=== PATIENT | male | born 1950 | race African-American/Black ===

== ENCOUNTER 2019-12-28 10:08 | Inpatient (IN) ==
[2019-12-28] MEDS ORDERED: Isovue-370 500 ML BOTTLE IVP ONE (10:27)
[2019-12-28] MEDS ORDERED: *HR* FentaNYL (PF) 100 MCG/2 ML VIAL IVP ONE (10:29)
[2019-12-28] MEDS ORDERED: Ondansetron 4 MG/2 ML VIAL IVP ONE (10:29)
[2019-12-28 10:50] LABS: Basophils % 0.3 %; Eosinophils # 0.2 K/mcL (0.0-0.6); Eosinophils % 1.6 %; Hematocrit 40.8 % (37.5-50.1); Hemoglobin 13.6 g/dL (12.9-16.9); Immature Granulocytes % 0.4 % (0-4); Lymphocytes # 0.8 K/mcL (0.6-4.6); Lymphocytes % 6.3 %; Mean Corpuscular HGB Conc 33.3 g/dL (31.6-35.5); Mean Corpuscular Hemoglobin 29.8 pg (28.0-33.3); Mean Corpuscular Volume 89.3 fL (83.0-100.0); Mean Platelet Volume 9.4 fL (9.4-12.4); Monocytes # 1.1 K/mcL (0.0-1.3); Monocytes % 8.6 %; Neutrophils # 10.7 K/mcL (1.6-8.9); Platelet Count 539 K/mcL (140-400); Red Blood Count 4.57 M/mcL (4.19-5.50); Red Cell Distribution Width 13.5 % (11.5-14.5); Segmented Neutrophils % 82.8 %
[2019-12-28 10:55] LABS: Bilirubin,Urine Negative (Negative); Blood,Urine Negative (Negative); Clarity,Urine Clear (Clear); Color,Urine Yellow (Yellow); Glucose,Urine (UA) Normal (Normal); Ketones,Urine Negative (Negative); Leukocyte Esterase,Urine Negative (Negative); Nitrite,Urine Negative (Negative); Protein,Urine Trace mg/dL (Neg-Trace); Specific Gravity,Urine 1.025 (1.010-1.025); Urobilinogen,Urine Normal (Normal)
[2019-12-28 11:07] LABS: Alanine Aminotransferase 43 Units/L (7-52); Albumin 4.1 g/dL (3.5-5.7); Alkaline Phosphatase 140 Units/L (34-104); Aspartate Amino Transferase 33 Units/L (13-39); BUN/Creatinine Ratio 24 (6-26); Bilirubin,Total 0.6 mg/dL (0.3-1.0); Blood Urea Nitrogen 17 mg/dL (8-23); Calcium 10.3 mg/dL (8.6-10.3); Carbon Dioxide 28 mEq/L (23-29); Chloride 99 mEq/L (98-107); Glucose 105 mg/dL (70-105); Lipase 45 Units/L (11-82); Osmolality,Calculated 288 (280-300); Potassium 3.7 mEq/L (3.5-5.1); Sodium 138 mEq/L (136-145); Total Protein 8.1 g/dL (6.4-8.9); Troponin I < 0.03 ng/mL (< 0.04); eGFR For African Americans > 60 (> 60); eGFR For Non-African Americans > 60 (> 60)
[2019-12-28] MEDS ORDERED: Piperacillin/Tazobactam 3.375 GM in 0.9 % Sodium Chloride Mini Bag 100 ML IVPB ONE (12:48)
[2019-12-28] MEDS ORDERED: Ondansetron 4 MG/2 ML VIAL IVP PRN (13:22)
[2019-12-28] MEDS ORDERED: Naloxone 0.4 MG/ML INJ IVP PRN (13:22)
[2019-12-28] MEDS: 0.9 % Sodium Chloride 1,000 ML IVC SCH (13:42)
[2019-12-28] MEDS ORDERED: *HR* LORazepam 2 MG/ML VIAL IVP PRN ×3 (14:17)
[2019-12-28] MEDS: Folic Acid 1 MG TABLET PO SCH (15:09)
[2019-12-28] MEDS: Thiamine (B-1) 100 MG TABLET PO SCH (15:09)
[2019-12-28] MEDS: Latanoprost 2.5 ML BOTTLE LEFT EYE SCH (22:31)
[2019-12-29] MEDS: Piperacillin/Tazobactam 3.375 GM in 0.9 % Sodium Chloride Mini Bag 100 ML IVPB SCH ×3 (00:17→16:50)
[2019-12-29] MEDS: 0.9 % Sodium Chloride 1,000 ML IVC SCH ×2 (00:18→09:14)
[2019-12-29 03:11] LABS: Basophils % 0.4 %; Eosinophils # 0.2 K/mcL (0.0-0.6); Eosinophils % 2.2 %; Hematocrit 37.1 % (37.5-50.1); Hemoglobin 12.1 g/dL (12.9-16.9); Immature Granulocytes % 0.4 % (0-4); Lymphocytes # 0.6 K/mcL (0.6-4.6); Lymphocytes % 6.5 %; Mean Corpuscular HGB Conc 32.6 g/dL (31.6-35.5); Mean Corpuscular Hemoglobin 30.2 pg (28.0-33.3); Mean Corpuscular Volume 92.5 fL (83.0-100.0); Mean Platelet Volume 9.6 fL (9.4-12.4); Monocytes # 0.9 K/mcL (0.0-1.3); Monocytes % 9.5 %; Platelet Count 434 K/mcL (140-400); Red Blood Count 4.01 M/mcL (4.19-5.50); Red Cell Distribution Width 13.5 % (11.5-14.5); White Blood Count 9.9 K/mcL (4.3-11.1)
[2019-12-29 03:30] LABS: Alanine Aminotransferase 32 Units/L (7-52); Albumin 3.4 g/dL (3.5-5.7); Albumin/Globulin Ratio 1.1 (1.1-2.2); Alkaline Phosphatase 112 Units/L (34-104); Aspartate Amino Transferase 24 Units/L (13-39); BUN/Creatinine Ratio 22 (6-26); Bilirubin,Total 0.7 mg/dL (0.3-1.0); Blood Urea Nitrogen 15 mg/dL (8-23); Calcium 9.8 mg/dL (8.6-10.3); Carbon Dioxide 27 mEq/L (23-29); Chloride 101 mEq/L (98-107); Globulin 3.1 g/dL (2.4-3.5); Glucose 87 mg/dL (70-105); Magnesium 2.1 mg/dL (1.6-2.6); Osmolality,Calculated 284 (280-300); Potassium 3.8 mEq/L (3.5-5.1); Sodium 137 mEq/L (136-145); Total Protein 6.5 g/dL (6.4-8.9); eGFR For African Americans > 60 (> 60); eGFR For Non-African Americans > 60 (> 60)
[2019-12-29] MEDS: hydroCHLOROthiazide 25 MG TABLET PO SCH (09:12)
[2019-12-29] MEDS: Thiamine (B-1) 100 MG TABLET PO SCH (09:12)
[2019-12-29] MEDS: amLODIPine 5 MG TABLET PO SCH (09:12)
[2019-12-29] MEDS: Aspirin Enteric Coated 81 MG Tablet PO SCH (09:13)
[2019-12-29] MEDS: Folic Acid 1 MG TABLET PO SCH (09:13)
[2019-12-29] MEDS: Latanoprost 2.5 ML BOTTLE LEFT EYE SCH (20:13)
[2019-12-30] MEDS: Piperacillin/Tazobactam 3.375 GM in 0.9 % Sodium Chloride Mini Bag 100 ML IVPB SCH ×4 (00:48→23:55)
[2019-12-30 06:00] LABS: Basophils % 0.3 %; Eosinophils # 0.3 K/mcL (0.0-0.6); Eosinophils % 2.9 %; Hematocrit 35.2 % (37.5-50.1); Hemoglobin 11.8 g/dL (12.9-16.9); Immature Granulocytes % 0.2 % (0-4); Lymphocytes # 0.6 K/mcL (0.6-4.6); Lymphocytes % 6.3 %; Mean Corpuscular HGB Conc 33.5 g/dL (31.6-35.5); Mean Corpuscular Hemoglobin 30.6 pg (28.0-33.3); Mean Corpuscular Volume 91.4 fL (83.0-100.0); Mean Platelet Volume 9.6 fL (9.4-12.4); Monocytes # 0.9 K/mcL (0.0-1.3); Monocytes % 9.9 %; Neutrophils # 7.4 K/mcL (1.6-8.9); Platelet Count 418 K/mcL (140-400); Red Blood Count 3.85 M/mcL (4.19-5.50); Red Cell Distribution Width 13.4 % (11.5-14.5); Segmented Neutrophils % 80.4 %; White Blood Count 9.2 K/mcL (4.3-11.1)
[2019-12-30 06:18] LABS: Alanine Aminotransferase 24 Units/L (7-52); Albumin 3.5 g/dL (3.5-5.7); Albumin/Globulin Ratio 1.1 (1.1-2.2); Alkaline Phosphatase 112 Units/L (34-104); Aspartate Amino Transferase 20 Units/L (13-39); BUN/Creatinine Ratio 14 (6-26); Bilirubin,Total 0.8 mg/dL (0.3-1.0); Blood Urea Nitrogen 11 mg/dL (8-23); Calcium 9.6 mg/dL (8.6-10.3); Carbon Dioxide 27 mEq/L (23-29); Chloride 98 mEq/L (98-107); Globulin 3.2 g/dL (2.4-3.5); Glucose 91 mg/dL (70-105); Osmolality,Calculated 275 (280-300); Potassium 3.5 mEq/L (3.5-5.1); Sodium 133 mEq/L (136-145); Total Protein 6.7 g/dL (6.4-8.9); eGFR For African Americans > 60 (> 60); eGFR For Non-African Americans > 60 (> 60)
[2019-12-30] MEDS: hydroCHLOROthiazide 25 MG TABLET PO SCH (10:17)
[2019-12-30] MEDS: Aspirin Enteric Coated 81 MG Tablet PO SCH (10:48)
[2019-12-30] MEDS: Folic Acid 1 MG TABLET PO SCH (10:48)
[2019-12-30] MEDS: amLODIPine 5 MG TABLET PO SCH (10:49)
[2019-12-30] MEDS: Thiamine (B-1) 100 MG TABLET PO SCH (10:49)
[2019-12-30] MEDS ORDERED: Simethicone 80 MG TAB.CHEW PO PRN (15:49)
[2019-12-30] MEDS ORDERED: 0.9 % Sodium Chloride 1,000 ML IVC SCH (16:00)
[2019-12-30] MEDS: Latanoprost 2.5 ML BOTTLE LEFT EYE SCH (21:22)
[2019-12-31 01:01] LABS: Basophils % 0.4 %; Eosinophils # 0.3 K/mcL (0.0-0.6); Eosinophils % 3.3 %; Hematocrit 34.6 % (37.5-50.1); Hemoglobin 11.5 g/dL (12.9-16.9); Immature Granulocytes % 0.2 % (0-4); Lymphocytes # 0.6 K/mcL (0.6-4.6); Lymphocytes % 7.4 %; Mean Corpuscular HGB Conc 33.2 g/dL (31.6-35.5); Mean Corpuscular Hemoglobin 30.3 pg (28.0-33.3); Mean Corpuscular Volume 91.1 fL (83.0-100.0); Mean Platelet Volume 9.4 fL (9.4-12.4); Monocytes # 0.9 K/mcL (0.0-1.3); Monocytes % 11.1 %; Neutrophils # 6.4 K/mcL (1.6-8.9); Platelet Count 395 K/mcL (140-400); Red Cell Distribution Width 13.1 % (11.5-14.5); Segmented Neutrophils % 77.6 %; White Blood Count 8.3 K/mcL (4.3-11.1)
[2019-12-31 01:19] LABS: BUN/Creatinine Ratio 11 (6-26); Blood Urea Nitrogen 7 mg/dL (8-23); Calcium 9.3 mg/dL (8.6-10.3); Carbon Dioxide 25 mEq/L (23-29); Chloride 102 mEq/L (98-107); Glucose 98 mg/dL (70-105); Osmolality,Calculated 278 (280-300); Potassium 3.9 mEq/L (3.5-5.1); Sodium 135 mEq/L (136-145); eGFR For African Americans > 60 (> 60); eGFR For Non-African Americans > 60 (> 60)
[2019-12-31] MEDS: Aspirin Enteric Coated 81 MG Tablet PO SCH (10:52)
[2019-12-31] MEDS: amLODIPine 5 MG TABLET PO SCH (10:52)
[2019-12-31] MEDS: Folic Acid 1 MG TABLET PO SCH (10:53)
[2019-12-31] MEDS: Piperacillin/Tazobactam 3.375 GM in 0.9 % Sodium Chloride Mini Bag 100 ML IVPB SCH ×2 (10:53→17:27)
[2019-12-31] MEDS: Thiamine (B-1) 100 MG TABLET PO SCH (10:53)
[2019-12-31] MEDS ORDERED: 0.9 % Sodium Chloride 1,000 ML IVC SCH (16:30)
[2019-12-31] MEDS: Latanoprost 2.5 ML BOTTLE LEFT EYE SCH (20:25)
[2020-01-01] MEDS: Piperacillin/Tazobactam 3.375 GM in 0.9 % Sodium Chloride Mini Bag 100 ML IVPB SCH ×4 (00:45→23:54)
[2020-01-01 05:28] LABS: Basophils % 0.3 %; Eosinophils # 0.3 K/mcL (0.0-0.6); Eosinophils % 3.7 %; Hematocrit 34.2 % (37.5-50.1); Hemoglobin 11.1 g/dL (12.9-16.9); Immature Granulocytes % 0.3 % (0-4); Lymphocytes # 0.6 K/mcL (0.6-4.6); Lymphocytes % 8.3 %; Mean Corpuscular HGB Conc 32.5 g/dL (31.6-35.5); Mean Corpuscular Volume 92.4 fL (83.0-100.0); Mean Platelet Volume 9.6 fL (9.4-12.4); Monocytes # 0.8 K/mcL (0.0-1.3); Monocytes % 11.9 %; Neutrophils # 5.1 K/mcL (1.6-8.9); Platelet Count 375 K/mcL (140-400); Red Cell Distribution Width 13.2 % (11.5-14.5); Segmented Neutrophils % 75.5 %; White Blood Count 6.8 K/mcL (4.3-11.1)
[2020-01-01 05:47] LABS: BUN/Creatinine Ratio 6 (6-26); Blood Urea Nitrogen 4 mg/dL (8-23); Calcium 9.2 mg/dL (8.6-10.3); Carbon Dioxide 23 mEq/L (23-29); Chloride 107 mEq/L (98-107); Glucose 93 mg/dL (70-105); Osmolality,Calculated 281 (280-300); Potassium 3.9 mEq/L (3.5-5.1); Sodium 137 mEq/L (136-145); eGFR For African Americans > 60 (> 60); eGFR For Non-African Americans > 60 (> 60)
[2020-01-01] MEDS ORDERED: Dexamethasone 4 MG/ML VIAL ONE (06:43)
[2020-01-01] MEDS ORDERED: Ondansetron 4 MG/2 ML VIAL ONE (06:43)
[2020-01-01] MEDS ORDERED: *HR* FentaNYL (PF) 100 MCG/2 ML VIAL ONE ×2 (06:43→08:12)
[2020-01-01] MEDS ORDERED: *HR* Rocuronium Bromide 50 MG/5 ML VIAL ONE (06:43)
[2020-01-01] MEDS ORDERED: Lidocaine -MPF 2% 2 ML VIAL ONE (06:43)
[2020-01-01] MEDS ORDERED: *HR* Propofol 200 MG/20 ML VIAL IVP ONE (06:43)
[2020-01-01] MEDS ORDERED: *HR* Succinylcholine 200 MG/10 ML VIAL IVP ONE (06:47)
[2020-01-01] MEDS: amLODIPine 5 MG TABLET PO SCH (07:38)
[2020-01-01] MEDS: Folic Acid 1 MG TABLET PO SCH (07:38)
[2020-01-01] MEDS: Aspirin Enteric Coated 81 MG Tablet PO SCH (07:38)
[2020-01-01] MEDS: Thiamine (B-1) 100 MG TABLET PO SCH (07:39)
[2020-01-01] MEDS ORDERED: *HR* PHENYLEPHRINE 1,000 MCG/10 ML SYRINGE IVP ONE (08:01)
[2020-01-01] MEDS ORDERED: Indomethacin 50 MG SUPP.RECT RC ONE (10:09)
[2020-01-01] MEDS: Latanoprost 2.5 ML BOTTLE LEFT EYE SCH (20:11)
[2020-01-02 05:38] LABS: Basophils % 0.1 %; Hematocrit 35.7 % (37.5-50.1); Hemoglobin 11.8 g/dL (12.9-16.9); Immature Granulocytes % 0.4 % (0-4); Lymphocytes # 0.6 K/mcL (0.6-4.6); Mean Corpuscular HGB Conc 33.1 g/dL (31.6-35.5); Mean Corpuscular Volume 90.8 fL (83.0-100.0); Mean Platelet Volume 9.6 fL (9.4-12.4); Monocytes # 0.9 K/mcL (0.0-1.3); Neutrophils # 9.4 K/mcL (1.6-8.9); Platelet Count 434 K/mcL (140-400); Red Blood Count 3.93 M/mcL (4.19-5.50); Red Cell Distribution Width 12.9 % (11.5-14.5); Segmented Neutrophils % 86.5 %
[2020-01-02 05:39] LABS: White Blood Count 10.9 K/mcL (4.3-11.1)
[2020-01-02 05:58] LABS: Alanine Aminotransferase 23 Units/L (7-52); Albumin 3.4 g/dL (3.5-5.7); Albumin/Globulin Ratio 1.1 (1.1-2.2); Alkaline Phosphatase 117 Units/L (34-104); Aspartate Amino Transferase 22 Units/L (13-39); BUN/Creatinine Ratio 8 (6-26); Bilirubin,Total 0.4 mg/dL (0.3-1.0); Blood Urea Nitrogen 5 mg/dL (8-23); Calcium 9.7 mg/dL (8.6-10.3); Carbon Dioxide 24 mEq/L (23-29); Chloride 108 mEq/L (98-107); Globulin 3.1 g/dL (2.4-3.5); Glucose 114 mg/dL (70-105); Lipase 15 Units/L (11-82); Osmolality,Calculated 284 (280-300); Potassium 4.2 mEq/L (3.5-5.1); Sodium 138 mEq/L (136-145); Total Protein 6.5 g/dL (6.4-8.9); eGFR For African Americans > 60 (> 60); eGFR For Non-African Americans > 60 (> 60)
[2020-01-02] MEDS: Piperacillin/Tazobactam 3.375 GM in 0.9 % Sodium Chloride Mini Bag 100 ML IVPB SCH ×3 (07:35→23:52)
[2020-01-02] MEDS ORDERED: CefOXitin 1,000 MG VIAL ONE (07:37)
[2020-01-02] MEDS: amLODIPine 5 MG TABLET PO SCH (07:38)
[2020-01-02] MEDS: Folic Acid 1 MG TABLET PO SCH (07:39)
[2020-01-02] MEDS: Aspirin Enteric Coated 81 MG Tablet PO SCH (07:39)
[2020-01-02] MEDS: Thiamine (B-1) 100 MG TABLET PO SCH (07:39)
[2020-01-02] MEDS ORDERED: cefOXitin 1,000 MG, 0.9 % Sodium Chloride 1,000 ML IR ONE ×2 (08:00→10:36)
[2020-01-02] MEDS ORDERED: *HR* Promethazine 25 MG/ML VIAL IVP PRN (08:31)
[2020-01-02] MEDS ORDERED: Ondansetron 4 MG/2 ML VIAL IVP ONE (08:31)
[2020-01-02] MEDS ORDERED: Ketorolac 15 MG/ML VIAL IVP ONE (08:31)
[2020-01-02] MEDS ORDERED: *HR* HYDROmorphone PF 0.5 MG/0.5 ML SYRINGE IVP PRN (08:31)
[2020-01-02] MEDS ORDERED: *HR* OxyCODONE Immed Rel 5 MG TABLET PO PRN (08:31)
[2020-01-02] MEDS ORDERED: Acetaminophen IV 1,000 MG/100 ML INFUS..BTL ONE (08:40)
[2020-01-02] MEDS ORDERED: *HR* FentaNYL (PF) 100 MCG/2 ML VIAL ONE ×2 (08:44→09:18)
[2020-01-02] MEDS ORDERED: *HR* Propofol 200 MG/20 ML VIAL IVP ONE (08:45)
[2020-01-02] MEDS ORDERED: *HR* Midazolam HCl 2 MG/2 ML VIAL ONE (08:45)
[2020-01-02] MEDS ORDERED: Dexamethasone 4 MG/ML VIAL ONE (08:48)
[2020-01-02] MEDS ORDERED: Lidocaine -MPF 2% 2 ML VIAL ONE (08:48)
[2020-01-02] MEDS ORDERED: *HR* Rocuronium Bromide 50 MG/5 ML VIAL ONE (08:48)
[2020-01-02] MEDS ORDERED: Ondansetron 4 MG/2 ML VIAL ONE (08:48)
[2020-01-02] MEDS ORDERED: *HR* Succinylcholine 200 MG/10 ML VIAL IVP ONE (08:48)
[2020-01-02] MEDS ORDERED: Lidocaine HCL 4 ML Topical Solution (Laryng-O-Jet Kit Sterile Pak) TP ONE (08:50)
[2020-01-02] MEDS ORDERED: *HR* Labetalol 20 MG/4 ML SYRINGE IVP ONE (09:26)
[2020-01-02] MEDS ORDERED: Ringers Solution, Lactated 1,000 ML ONE (10:30)
[2020-01-02] MEDS ORDERED: Ondansetron 4 MG/2 ML VIAL IVP PRN (10:36)
[2020-01-02] MEDS ORDERED: Naloxone 0.4 MG/ML INJ IVP PRN (10:36)
[2020-01-02] MEDS ORDERED: Simethicone 80 MG TAB.CHEW PO PRN (10:36)
[2020-01-02] MEDS ORDERED: Latanoprost 2.5 ML BOTTLE LEFT EYE SCH (21:00)
[2020-01-03 05:05] LABS: Basophils % 0.1 %; Hematocrit 32.7 % (37.5-50.1); Hemoglobin 10.5 g/dL (12.9-16.9); Immature Granulocytes % 0.3 % (0-4); Lymphocytes # 0.5 K/mcL (0.6-4.6); Lymphocytes % 4.6 %; Mean Corpuscular HGB Conc 32.1 g/dL (31.6-35.5); Mean Corpuscular Hemoglobin 29.3 pg (28.0-33.3); Mean Corpuscular Volume 91.3 fL (83.0-100.0); Mean Platelet Volume 9.6 fL (9.4-12.4); Monocytes # 0.9 K/mcL (0.0-1.3); Monocytes % 9.5 %; Neutrophils # 8.5 K/mcL (1.6-8.9); Platelet Count 427 K/mcL (140-400); Red Blood Count 3.58 M/mcL (4.19-5.50); Red Cell Distribution Width 13.5 % (11.5-14.5); Segmented Neutrophils % 85.5 %; White Blood Count 9.9 K/mcL (4.3-11.1)
[2020-01-03 05:25] LABS: Alanine Aminotransferase 28 Units/L (7-52); Alkaline Phosphatase 106 Units/L (34-104); Aspartate Amino Transferase 31 Units/L (13-39); BUN/Creatinine Ratio 10 (6-26); Bilirubin,Total 0.3 mg/dL (0.3-1.0); Blood Urea Nitrogen 8 mg/dL (8-23); Carbon Dioxide 21 mEq/L (23-29); Chloride 108 mEq/L (98-107); Glucose 114 mg/dL (70-105); Osmolality,Calculated 283 (280-300); Potassium 3.8 mEq/L (3.5-5.1); Sodium 137 mEq/L (136-145); eGFR For African Americans > 60 (> 60); eGFR For Non-African Americans > 60 (> 60)
[2020-01-03] MEDS: Piperacillin/Tazobactam 3.375 GM in 0.9 % Sodium Chloride Mini Bag 100 ML IVPB SCH (08:20)
[2020-01-03] MEDS ORDERED: hydroCHLOROthiazide 25 MG TABLET PO SCH (09:00)
[2020-01-03] MEDS ORDERED: Aspirin Enteric Coated 81 MG Tablet PO SCH (09:00)
[2020-01-03] MEDS ORDERED: amLODIPine 5 MG TABLET PO SCH (09:00)
[2020-01-03] MEDS ORDERED: Folic Acid 1 MG TABLET PO SCH (09:00)
[2020-01-03] MEDS ORDERED: Thiamine (B-1) 100 MG TABLET PO SCH (09:00)
[2020-01-03 10:16] VITALS: BP 138/84
== END 2020-01-03 13:27 | disposition home or self-care (01) | DRG 417 ==
LOC: 3ANU 10:08 → EMEROOARM 10:08 → SUATTDRO 13:15 → 3ANU 13:52 → SUATTDRO 12-30 17:07
PROVIDERS: ADMIT Student in an Organized Health Care Education/Training Program; ATTEND Internal Medicine